=== PATIENT | male | born 1990 | race Caucasian/White ===

== ENCOUNTER 2022-10-26 11:32 | Emergency (ER) | payer SELFPAY ==
[~2022-10-26] VITALS: Ht 165.1 cm; Wt 9.0 kg
[2022-10-26 11:42] VITALS: BP 106/58
== END 2022-10-26 12:27 | disposition home or self-care (01) ==
LOC: ER 11:57
DX: R10.9 Unspecified abdominal pain (principal)
CPT/HCPCS: 99283